=== PATIENT | female | born 1955 | race African-American/Black ===

== ENCOUNTER 2020-01-31 15:24 | Emergency (ER) | payer MEDICAID ==
[2020-01-31 15:34] VITALS: BP 160/76
--- NOTE | 2020-01-31 15:41 | ED Physician Documentation ---
PD HPI URI - Stated complaint Stated Complaint: COUGH - Chief complaint Chief Complaint: Resp - History obtained from History obtained from: Patient (She has had about 2 and half months worth of cough now. Originally it was nonproductive but over the last week it is become more productive with yellow sputum. She denies shortness of breath or fevers. She was seen at [facility] at the outset she says and had an x-ray showing "fluid on her lungs." Not sure exactly what this means. She was prescribed inhalers which have not been helpful. No recent travel except to [place]. She is not short of breath.) Review of Systems Constitutional: denies: Fever, Chills Cardiac: denies: Chest pain / pressure, Palpitations Respiratory: reports: Cough. denies: Dyspnea, Hemoptysis, Wheezing PD PAST MEDICAL HISTORY - Present Medications Home Medications: Ambulatory Orders Medication Instructions Recorded Confirmed Azithromycin [Zithromax] 1 tab PO DAILY #6 tablet 01/31/20 - Allergies Allergies/Adverse Reactions: Allergies Allergy/AdvReac Type Severity Reaction Status Date / Time No Known Drug Allergies Allergy Verified 01/31/20 15:34 - Social History Does the pt smoke?: No PD ED PE NORMAL - Vitals Vital signs reviewed: Yes - General General: Alert and oriented X 3, No acute distress - HEENT HEENT: Pharynx benign - Neck Neck: Supple, no meningeal sign, No bony TTP - Cardiac Cardiac: RRR, No murmur - Respiratory Respiratory: No respiratory distress, Other (Left basilar rhonchi) - Abdomen Abdomen: Non tender - Derm Derm: No rash - Neuro Neuro: Alert and oriented X 3, Normal speech Results - Vitals Vitals: Vital Signs - 24 hr 01/31/20 15:31 Temperature 36.5 C Heart Rate 85 Respiratory 16 Rate Blood Pressure 160/76 H O2 Saturation 97 Oxygen O2 Source Room air - Rads (name of study) 2v chest Radiology: EMP read contemporaneously (normal) PD MEDICAL DECISION MAKING - ED course ED course: 64-year-old woman now with longstanding and more productive cough. Given the time course a trial of antibiotic seems very reasonable. Departure - Departure Disposition: 01 Home, Self Care Clinical Impression: Cough Condition: Good Record reviewed to determine appropriate education?: Yes Instructions: ED Upper Resp Infec Abx Tx Ch Prescriptions: Azithromycin [Zithromax] 1 tab PO DAILY #6 tablet Comments: Follow-up with your doctor in a week, return if worse.
--- NOTE | 2020-01-31 16:02 | XRAY Report ---
Reason: cough Procedure Date: 01/31/2020 Accession Number: [id number] / [id number] Procedure: XR - Chest 2 View X-Ray CPT Code: 37993 Final Report FULL RESULT: EXAM: CHEST RADIOGRAPHY EXAM DATE: 01/31/2020 03:57 PM. CLINICAL HISTORY: Cough. COMPARISON: None. TECHNIQUE: 2 views. FINDINGS: Lungs/Pleura: No focal airspace opacity. No pleural effusion or pneumothorax. Mediastinum: Heart and mediastinal contours are unremarkable. Other: None. IMPRESSION: No acute cardiopulmonary abnormality. RADIA
== END 2020-01-31 16:15 | disposition home or self-care (01) ==
LOC: ED 15:24
DX: R05 Cough (principal)
CPT/HCPCS: 71046; 99283; 99284

== ENCOUNTER 2020-02-10 17:22 | Emergency (ER) | payer MEDICAID ==
--- NOTE | 2020-02-10 17:52 | XRAY Report ---
Reason: R/O Pn Procedure Date: 02/10/2020 Accession Number: [id number] / [id number] Procedure: XR - Chest 2 View X-Ray CPT Code: 58131 Final Report FULL RESULT: EXAM: CHEST RADIOGRAPHY EXAM DATE: 02/10/2020 05:44 PM. CLINICAL HISTORY: R/O Pn. COMPARISON: CHEST 2 VIEW 01/31/2020 3:43 PM. TECHNIQUE: 2 views. FINDINGS: Lungs/Pleura: No focal opacities evident. No pleural effusion. No pneumothorax. Normal volumes. Mediastinum: Heart and mediastinal contours are unremarkable. Other: None. IMPRESSION: Normal 2-view chest radiography. RADIA
[2020-02-10] MEDS ORDERED: CHERRY SYRUP 10 ML UDC PO ONE (18:07)
[2020-02-10] MEDS ORDERED: DEXAMETHASONE 10 MG/ML VIAL PO STA (18:07)
--- NOTE | 2020-02-10 18:09 | ED Physician Documentation ---
PD HPI URI - Stated complaint Stated Complaint: COUGH,CHILLS - Chief complaint Chief Complaint: Resp - History obtained from History obtained from: Patient - History of Present Illness Timing - onset: How many months ago (3) Timing duration: Months (3) Timing details: Gradual onset, Still present, Waxing and waning Associated symptoms: Nasal congestion, Rhinorrhea, Sinus pain, Productive cough, Dyspnea. No: Fever Improves by: Rest, Medication Similar symptoms before: Diagnosis (bronchitis) Recently seen: Emergency Dept - Additional information Additional information: 64-year-old female has had a nonproductive cough since of last year. She has had waxing and waning of her symptoms she has some sinus tenderness and she is developed production of sputum as well. She was seen in the emergency department a week ago and given a course of azithromycin which did not help the cough. The patient states that she is not particularly short of breath with this. Review of Systems Constitutional: denies: Fever, Chills Eyes: denies: Decreased vision Ears: denies: Ear pain Nose: reports: Rhinorrhea / runny nose, Congestion, Sinus pressure / pain Throat: denies: Sore throat Cardiac: denies: Chest pain / pressure, Palpitations Respiratory: reports: Cough GI: denies: Abdominal Pain, Nausea, Vomiting : denies: Dysuria PD PAST MEDICAL HISTORY - Present Medications Home Medications: Ambulatory Orders Medication Instructions Recorded Confirmed Azithromycin [Zithromax] 1 tab PO DAILY #6 tablet 01/31/20 Amox/Clav 875/125 [Augmentin] 1 each PO Q12H #20 tablet 02/10/20 - Allergies Allergies/Adverse Reactions: Allergies Allergy/AdvReac Type Severity Reaction Status Date / Time No Known Drug Allergies Allergy Verified 02/10/20 17:25 - Social History Does the pt smoke?: No PD ED PE NORMAL - Vitals Vital signs reviewed: Yes (hypertensive ) - General General: Alert and oriented X 3, No acute distress, Well developed/nourished - HEENT HEENT: Atraumatic, PERRL, EOMI, Ears normal, Moist mucous membranes, Other (minimal inflamation to the left tonsil. Right maxillary sinus is tender to palpation ) - Neck Neck: Supple, no meningeal sign, No bony TTP - Cardiac Cardiac: RRR, No murmur - Respiratory Respiratory: No respiratory distress, Clear bilaterally - Abdomen Abdomen: Soft, Non tender - Back Back: No CVA TTP, No spinal TTP - Derm Derm: Normal color, Warm and dry, No rash - Extremities Extremities: No deformity, No edema, No calf tenderness / cord - Neuro Neuro: Alert and oriented X 3, organ assembler 2-12 intact, No motor deficit, No sensory deficit, Normal speech Eye Opening: Spontaneous Motor: Obeys Commands Verbal: Oriented GCS Score: 15 - Psych Psych: Normal mood, Normal affect Results - Vitals Vitals: Vital Signs - 24 hr 02/10/20 17:25 Temperature 37.2 C Heart Rate 88 Respiratory 16 Rate Blood Pressure 180/100 H O2 Saturation 96 Oxygen O2 Source Room air PD MEDICAL DECISION MAKING - ED course Complexity details: reviewed old records, re-evaluated patient, considered differential, d/w patient ED course: 64-year-old female with a cough that has not improved with use of empiric azithromycin appears to have sinusitis on physical examination and history. She is administered dexamethasone 10 mg orally and we will change her antibiotic to Augmentin. Departure - Departure Disposition: 01 Home, Self Care Clinical Impression: Sinusitis Qualifiers: Sinusitis location: maxillary Chronicity: acute Recurrence: non-recurrent Qualified Code(s): J01.00 - Acute maxillary sinusitis, unspecified Condition: Stable Instructions: ED Sinusitis Abx Tx Follow-Up: [facility] [Provider Group] Prescriptions: Amox/Clav 875/125 [Augmentin] 1 each PO Q12H #20 tablet
[2020-02-10 19:09] VITALS: BP 126/78
== END 2020-02-10 19:08 | disposition home or self-care (01) ==
LOC: ED 17:22
DX: J01.00 Acute maxillary sinusitis, unspecified (principal)
CPT/HCPCS: 71046; 99283; 99284; A9270

== ENCOUNTER 2020-03-10 14:51 | Emergency (ER) | payer MEDICAID ==
--- NOTE | 2020-03-10 15:14 | ED Physician Documentation ---
History of Present Illness - Stated complaint Stated Complaint: DIZZY/RUSSELL - Chief complaint Chief Complaint: Neuro - History obtained from History obtained from: Patient (64-year-old female comes in today with chief complaint of having dizziness, and a headache that started today. She woke this morning he felt fine ate breakfast and had a coffee went about her day. She sat down in a chair for a while late this morning early afternoon, when she stood up she got very dizzy. She had no loss of vision, no tunnel vision. She states the room started spinning she has had to sit back. Shortly thereafter she developed a headache on the right side of her head behind her eye into her face. She denies any chest pain palpitations, nausea, vomiting, diarrhea, or fevers. She just completed a course of antibiotics roughly 3 to 4 days ago for a sinus infection. She states that she suffers from chronic sinusitis and seasonal allergies. She does not take anything for the allergies other than Benadryl.) - History of Present Illness Timing: Today Pain level max: 6 Pain level now: 6 Quality: Dull, throbbing Improved by: Nothing Worsened by: Turning her head - Treatment prior to arrival Treatment prior to arrival: Nothing Review of Systems Constitutional: reports: Fatigue. denies: Fever, Chills, Myalgias, Sweats Eyes: denies: Loss of vision, Decreased vision, Photophobia Ears: denies: Loss of hearing, Ear pain, Drainage/discharge, Tinnitus/ringing Nose: reports: Sinus pressure / pain. denies: Rhinorrhea / runny nose, Congestion, Epistaxis Throat: denies: Dental pain / toothache, Oral lesions / sores, Sore throat, Swollen tonsils Cardiac: denies: Chest pain / pressure, Palpitations, Pedal edema, Calf pain Respiratory: denies: Dyspnea, Cough, Hemoptysis, Wheezing GI: reports: Nausea, Vomiting. denies: Abdominal Pain, Constipation, Diarrhea, Hematemesis (Once today) : denies: Dysuria, Frequency, Hesitancy Skin: denies: Rash Musculoskeletal: denies: Neck pain, Back pain, Joint pain Neurologic: denies: Generalized weakness, Focal weakness, Numbness, Difficulty speaking, Near syncope, Syncope, Seizure, Confused, Altered mental status, Headache, Head injury, LOC Endocrine: denies: Polydypsia, Polyuria, Polyphagia, Swollen lymph nodes PD PAST MEDICAL HISTORY - Past Medical History Past Medical History: Yes Cardiovascular: Hypertension (was on medication in the past but has since been DC'd as she was diagnosed with white coat syndrome) Respiratory: Asthma - Past Surgical History Past Surgical History: Yes /[employer]: LEEP (Cervical surgery) - Present Medications Home Medications: Ambulatory Orders Medication Instructions Recorded Confirmed No Known Home Medications 03/10/20 03/10/20 - Allergies Allergies/Adverse Reactions: Allergies Allergy/AdvReac Type Severity Reaction Status Date / Time No Known Drug Allergies Allergy Verified 03/10/20 14:53 - Social History Does the pt smoke?: No Smoking Status: Never smoker Does the pt drink ETOH?: Yes Does the pt have substance abuse?: No PD ED PE NORMAL - General General: Alert and oriented X 3, No acute distress - HEENT HEENT: Atraumatic, PERRL, EOMI, Ears normal, Moist mucous membranes, Pharynx benign, Dentition benign - Neck Neck: Supple, no meningeal sign, No adenopathy - Cardiac Cardiac: RRR, No murmur, No gallop - Respiratory Respiratory: No respiratory distress - Abdomen Abdomen: Normal bowel sounds, Soft, Non tender - Back Back: No CVA TTP - Derm Derm: Normal color, Warm and dry, No rash - Extremities Extremities: No deformity, No tenderness to palpate, No edema - Neuro Eye Opening: Spontaneous Motor: Obeys Commands Verbal: Oriented GCS Score: 15 PD ED PE EXPANDED - HEENT HEENT: PERRL, EOMI, Ears normal, Nasal congestion, Pharynx normal. No: Scleral icterus, Rhinorrhea, Swollen tonsils Results - Vitals Vitals: Vital Signs - 24 hr 03/10/20 14:53 Temperature 36.5 C Heart Rate 82 Respiratory 16 Rate Blood Pressure 160/90 H O2 Saturation 98 Oxygen O2 Source Room air - Labs Labs: Laboratory Tests 03/10/20 03/10/20 16:05 16:05 WBC 7.1 RBC 4.48 Hgb 13.3 Hct 40.5 MCV 90.4 MCH 29.7 MCHC 32.8 RDW 12.9 Plt Count 325 MPV 9.6 Neut # (Auto) 3.6 Lymph # (Auto) 2.4 [place] # (Auto) 0.7 Eos # (Auto) 0.3 Baso # (Auto) 0.0 Absolute Nucleated RBC 0.00 Nucleated RBC % 0.0 Sodium 138 Potassium 3.6 Chloride 106 Carbon Dioxide 27 Anion Gap 5.0 L BUN 9 Creatinine 0.7 Estimated GFR (MDRD) 102 Glucose 101 H Calcium 8.9 Total Bilirubin 0.7 AST 20 ALT 17 Alkaline Phosphatase 68 Total Protein 7.6 Albumin 4.1 Globulin 3.5 Albumin/Globulin Ratio 1.2 Lipase 39 - Rads (name of study) No standard instances Radiology: Final report received (Normal head CT.) PD MEDICAL DECISION MAKING - ED course Complexity details: reviewed results (Normal head CT. CBC normal. ) Departure - Departure Disposition: Home, Self Care Clinical Impression: Sinusitis chronic, frontal Seasonal allergic rhinitis Qualifiers: Allergic rhinitis trigger: unspecified Qualified Code(s): J30.2 - Other seasonal allergic rhinitis Condition: Good Instructions: ED Allergy Seasonal, ED Headache Sinus Comments: . Your head CT today was normal, there is no complications inside your brain. 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 You can continue use Benadryl at night to help sleep, but tray and reduce taking it during the day time once you have been on Zyrtec for a couple of weeks. You can also get some over the counter nasal spray to use when your nose is running. Continue to drink copious amounts of water to help clear out your sinuses. You can use ibuprofen and Tylenol for pain control. Also use a warm compress on your sinuses to help alleviate pain and to help break up the mucus. You suffer from chronic seasonal allergies, so symptomatic treatment is what you will need to do. Follow up with your primary care provider in 1 month if your symptoms persist to discuss allergy testing.
[2020-03-10 16:11] LABS: BASOPHILS % (AUTO) 0.6 %; EOSINOPHILS # (AUTO) 0.3 10^3/uL (0.0-0.7); EOSINOPHILS % (AUTO) 3.9 %; HGB - HEMOGLOBIN 13.3 g/dL (12.0-16.0); LYMPHOCYTES # (AUTO) 2.4 10^3/uL (1.5-3.5); MEAN CORPUSCULAR HEMOGLOBIN 29.7 pg (27.0-31.0); MEAN CORPUSCULAR HGB CONC 32.8 g/dL (32.0-36.0); MEAN CORPUSCULAR VOLUME 90.4 fL (81.0-99.0); MEAN PLATELET VOLUME 9.6 fL (7.9-10.8); MONOCYTES # (AUTO) 0.7 10^3/uL (0.0-1.0); NEUTROPHILS # (AUTO) 3.6 10^3/uL (1.5-6.6); NEUTROPHILS % (AUTO) 51.2 %; PLT - PLATELET COUNT 325 10^3/uL (130-450); RED BLOOD COUNT 4.48 10^6/uL (4.20-5.40); RED CELL DISTRIBUTION WIDTH 12.9 % (12.0-15.0); WHITE BLOOD COUNT 7.1 x10^3/uL (4.8-10.8)
--- NOTE | 2020-03-10 16:16 | CT Report ---
Reason: headache, dizziness Procedure Date: 03/10/2020 Accession Number: [id number] / [id number] Procedure: CT - HEAD WO CPT Code: Final Report FULL RESULT: EXAM: CT HEAD EXAM DATE: 03/10/2020 03:48 PM. CLINICAL HISTORY: Frontal headache and dizziness for 2 days. COMPARISON: None. TECHNIQUE: Multiaxial CT images were obtained from the foramen magnum to the vertex. Reformats: Sagittal and coronal. IV contrast: None. In accordance with CT protocol optimization, one or more of the following dose reduction techniques were utilized for this exam: automated exposure control, adjustment of mA and/or KV based on patient size, or use of iterative reconstructive technique. FINDINGS: Parenchyma: No intraparenchymal hemorrhage. No evidence of mass, midline shift, or CT findings of infarction. Mitchell-white differentiation is distinct. Extraaxial Spaces: Normal for age. No subdural or epidural collections identified. Ventricles: Normal in size and position. Sinuses and Orbits: Imaged paranasal sinuses, orbits, and mastoids show no significant abnormality. Bones: No evidence of fracture or calvarial defect. Other: None. IMPRESSION: Normal head CT. RADIA
[2020-03-10 16:24] LABS: ALBUMIN 4.1 g/dL (3.2-5.5); ALBUMIN/GLOBULIN RATIO 1.2 (1.0-2.2); BILIRUBIN,TOTAL 0.7 mg/dL (0.2-1.0); CALCIUM 8.9 mg/dL (8.5-10.3); CREATININE 0.7 mg/dL (0.4-1.0); TOTAL PROTEIN 7.6 g/dL (6.7-8.2)
[2020-03-10 17:23] VITALS: BP 166/88
== END 2020-03-10 17:38 | disposition home or self-care (01) ==
LOC: ED 14:51
DX: J32.1 Chronic frontal sinusitis (principal); J30.2 Other seasonal allergic rhinitis
CPT/HCPCS: 36415; 70450; 80053; 83690; 85025; 93005; 99284

== ENCOUNTER 2020-09-21 15:55 | Emergency (ER) | payer MEDICAID ==
[2020-09-21 16:32] LABS: BASOPHILS # (AUTO) 0.1 10^3/uL (0.0-0.1); BASOPHILS % (AUTO) 0.6 %; EOSINOPHILS # (AUTO) 0.2 10^3/uL (0.0-0.7); EOSINOPHILS % (AUTO) 2.9 %; HGB - HEMOGLOBIN 12.2 g/dL (12.0-16.0); MEAN CORPUSCULAR HEMOGLOBIN 29.8 pg (27.0-31.0); MEAN CORPUSCULAR HGB CONC 33.3 g/dL (32.0-36.0); MEAN CORPUSCULAR VOLUME 89.5 fL (81.0-99.0); MEAN PLATELET VOLUME 9.5 fL (7.9-10.8); MONOCYTES # (AUTO) 0.9 10^3/uL (0.0-1.0); MONOCYTES % (AUTO) 10.9 %; NEUTROPHILS % (AUTO) 49.1 %; PLT - PLATELET COUNT 325 10^3/uL (130-450); RED BLOOD COUNT 4.09 10^6/uL (4.20-5.40); RED CELL DISTRIBUTION WIDTH 12.6 % (12.0-15.0); WHITE BLOOD COUNT 8.2 x10^3/uL (4.8-10.8)
--- NOTE | 2020-09-21 16:37 | ED Physician Documentation ---
History of Present Illness - Stated complaint Stated Complaint: HEART PALPITATIONS - Chief complaint Chief Complaint: Cardiac - History obtained from History obtained from: Patient - Additonal information Additional information: 64-year-old female presents the emergency department for evaluation of substernal chest pain that began this a.m. She has had multiple episodes of chest pain that typically last 1 to 2 minutes. She describes the pain as pressure and tightness in her chest. She also reports that for much of the last week she has been having palpitations. She had attributed this to excessive caffeine use so she cut back on the amount of coffee she was drinking however over the last 48 hours she has noticed that she is getting short of air when climbing the stairs at her house. She reports to me that she climbs the stairs all day every day and is never short of breath until recently. She denies any leg swelling, no history of blood clots cancer. She does have a history of hypertension for which she takes amlodipine and hydrochlorothiazide. She does report to me that back in the mid she did have coronary angiography secondary to palpitations. This was done in [facility]. Former tobacco user quit more than 30 years ago. Review of Systems Constitutional: reports: Reviewed and negative Ears: reports: Reviewed and negative Nose: reports: Reviewed and negative Throat: reports: Reviewed and negative Cardiac: reports: Chest pain / pressure, Palpitations. 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) - Present Medications Home Medications: Ambulatory Orders Medication Instructions Recorded Confirmed Albuterol Sulfate [Proair Hfa 1 - 2 puffs INH Q4H PRN 09/21/20 09/21/20 Inhaler] Omeprazole 40 mg PO DAILY 09/21/20 09/21/20 amLODIPine [Norvasc] 5 mg ORAL DAILY 09/21/20 09/21/20 hydroCHLOROthiazide 25 mg PO DAILY 09/21/20 09/21/20 [Hydrochlorothiazide] - Allergies Allergies/Adverse Reactions: Allergies Allergy/AdvReac Type Severity Reaction Status Date / Time No Known Drug Allergies Allergy Verified 09/21/20 16:17 - Social History Does the pt smoke?: No Smoking Status: Never smoker Does the pt drink ETOH?: Yes Does the pt have substance abuse?: No PD ED PE EXPANDED - General General: Alert, No acute distress - HEENT HEENT: PERRL, EOMI - Neck Neck: Supple w/out meningeal sx, No tenderness - Cardiac Cardiac: Regular Rate, Regular Rhythm, Radial strong equal, Pedal strong equal, Cap refill < 2 sec. No: Murmur Present - Respiratory Respiratory: Clear to ausultation jhony. No: Distress, Labored - Abdomen Abdomen: Normal Bowel sounds. No: Tender to palpation - Extremities Extremities: Normal. No: Pedal edema R, Pedal edema L, Pedal edema bilateral - Neuro Neuro: Alert and Oriented X 3, Normal speech - GCS Eye Opening: Spontaneous Motor: Obeys Commands Verbal: Oriented Total: 15 - Psych Psych: Normal Results - Vitals Vitals: Vital Signs - 24 hr 09/21/20 09/21/20 09/21/20 16:05 16:37 17:00 Temperature 36.9 C 37.1 C Heart Rate 84 87 80 Respiratory 16 16 22 Rate Blood Pressure 164/83 H 153/74 H O2 Saturation 100 100 100 Oxygen O2 Source Room air - EKG (time done) 1613 Rate: Rate (enter#) (81) Rhythm: NSR [place]: Normal Intervals: Normal [place] QRS: Normal Ischemia: Normal ST segments Compare to prior EKG: Old EKG unavailable Computer interpretation: Agree with computer - Labs Labs: Laboratory Tests 09/21/20 09/21/20 09/21/20 16:25 16:25 16:25 WBC 8.2 RBC 4.09 L Hgb 12.2 Hct 36.6 L MCV 89.5 MCH 29.8 MCHC 33.3 RDW 12.6 Plt Count 325 MPV 9.5 Neut # (Auto) 4.0 Lymph # (Auto) 3.0 [place] # (Auto) 0.9 Eos # (Auto) 0.2 Baso # (Auto) 0.1 Absolute Nucleated RBC 0.00 Nucleated RBC % 0.0 Sodium 140 Potassium 3.3 L Chloride 101 Carbon Dioxide 28 Anion Gap 11.0 BUN 13 Creatinine 0.8 Estimated GFR (MDRD) 88 L Glucose 101 H Calcium 9.8 Total Bilirubin 0.5 AST 28 ALT 30 Alkaline Phosphatase 60 Troponin I High Sens < 2.3 L B-Natriuretic Peptide Total Protein 7.6 Albumin 4.2 Globulin 3.4 Albumin/Globulin Ratio 1.2 Lipase 39 09/21/20 16:25 WBC RBC Hgb Hct MCV MCH MCHC RDW Plt Count MPV Neut # (Auto) Lymph # (Auto) [place] # (Auto) Eos # (Auto) Baso # (Auto) Absolute Nucleated RBC Nucleated RBC % Sodium Potassium Chloride Carbon Dioxide Anion Gap BUN Creatinine Estimated GFR (MDRD) Glucose Calcium Total Bilirubin AST ALT Alkaline Phosphatase Troponin I High Sens B-Natriuretic Peptide 5 Total Protein Albumin Globulin Albumin/Globulin Ratio Lipase - Rads (name of study) CXR Radiology: Final report received (no acute cardiopulmonary process) PD MEDICAL DECISION MAKING - ED course Complexity details: reviewed results, re-evaluated patient, considered differential, d/w patient, d/w family ED course: 64-year-old female presents to the emergency department for evaluation of chest pain that began this a.m. and has been intermittent. She describes it is typically worse at rest and with sitting. She is also describing feelings of being short of air when climbing the stairs and having heart palpitations for much of the last week. Her ECG today is sinus rhythm and shows no ischemic changes. Her chest x-ray is unremarkable without any focal abnormalities. By Wells criteria the suspicion for PE is low. When we calculate the patient's heart score she scores a 3 today however on the rastafarian of her birthday she would score a 4. I discussed this case with our day hospitalist Dr. Carreon. It is not unreasonable to consider bringing her in for observation and risk stratification/stress test in the a.m. I did discuss this option with the patient and her daughter at the bedside. However the patient would prefer not to be admitted to observation today and feels that she can request a stress test from her primary doctor in follow-up. This is also a reasonable alternative in her care. The patient will be discharged home with instructions to call her primary and request outpatient stress testing. If at any point she has increasing chest pain or dyspnea, any fainting episodes or any other emergent concerns she will return for a second look Departure - Departure Disposition: Home, Self Care Clinical Impression: Palpitations, History of chronic hypertension Chest pain Qualifiers: Chest pain type: unspecified Qualified Code(s): R07.9 - Chest pain, unspecified Condition: Stable Record reviewed to determine appropriate education?: Yes Follow-Up: Rey Berry [Primary Care Provider] - Within 1 week Comments: You were seen today in the ER for chest pain and palpitations. Your EKG was normal. Your chest x-ray was also normal. All of the lab values that we jozef today were also normal including your troponin and BNP. However you do have risk factors for coronary artery disease given your history of high blood pressure. Please call your primary provider Dr. Berry and request him to order an outpatient stress test or echocardiogram. If at any point you have worsening chest pain or shortness of breath, feel faint or lightheaded please return immediately to the ER for a second look.
[2020-09-21 16:45] LABS: ALBUMIN 4.2 g/dL (3.2-5.5); ALBUMIN/GLOBULIN RATIO 1.2 (1.0-2.2); BILIRUBIN,TOTAL 0.5 mg/dL (0.2-1.0); CALCIUM 9.8 mg/dL (8.5-10.3); CREATININE 0.8 mg/dL (0.4-1.0); TOTAL PROTEIN 7.6 g/dL (6.7-8.2)
--- NOTE | 2020-09-21 17:01 | XRAY Report ---
PROCEDURE: Chest 1 View X-Ray INDICATIONS: Chest Pain TECHNIQUE: One view of the chest was acquired. COMPARISON: 02/10/2020 FINDINGS: Surgical changes and devices: None. Lungs and pleura: No pleural effusions or pneumothorax. Lungs are clear. Mediastinum: Mediastinal contours appear normal. Heart size is normal. Bones and chest wall: No suspicious bony lesions. Overlying soft tissues appear unremarkable. IMPRESSION: No acute cardiopulmonary process demonstrated radiographically. Reviewed by: Jaskaran Johns MD on 09/21/2020 5:00 PM PDT Approved by: Jaskaran Johns MD on 09/21/2020 5:00 PM PDT Station ID: [id number]
[2020-09-21 17:45] VITALS: BP 151/67
== END 2020-09-21 17:57 | disposition home or self-care (01) ==
LOC: ED 15:55
DX: R00.2 Palpitations (principal); I10 Essential (primary) hypertension; R07.9 Chest pain, unspecified; Z87.891 Personal history of nicotine dependence
CPT/HCPCS: 36415; 71045; 80053; 83690; 83880; 84484; 85025; 93005; 99284